=== PATIENT | male | born 1980 ===

== ENCOUNTER 2023-03-09 00:45 | Emergency (ER) | payer SELFPAY ==
[2023-03-09 01:19] VITALS: BP 145/86; PULSE 94; RESP 22; TEMP 38.2; O2SAT 97; BMI 32.3
--- NOTE | 2023-03-09 01:51 | DI.RAD.S_ITS ---
PROCEDURE: XR CHEST 1V INDICATIONS: Shortness of breath TECHNIQUE: One view of the chest was acquired. COMPARISON: CR, CHEST 2 VIEW, 03/13/2012, 20:43. FINDINGS: Surgical changes and devices: None. Lungs and pleura: Right suprahilar opacity may be infiltrate, scar or atelectasis. No pleural effusions or pneumothorax. Mediastinum: Mediastinal contours appear normal. Heart size is normal. Bones and chest wall: No suspicious bony lesions. Overlying soft tissues appear unremarkable. IMPRESSION: Right suprahilar infiltrate, scar or atelectasis. No significant discrepancy with the hourly shift radiology preliminary report. Dictated by: Quirino Flowers M.D. on 03/09/2023 at 8:31 Approved by: Quirino Flowers M.D. on 03/09/2023 at 8:33
[2023-03-09 02:08] LABS: Lactate (Lactic Acid) 1.8 mmol/L (0.7-2.1)
[2023-03-09 02:09] LABS: Alanine Aminotransferase 80 IU/L (<50); Albumin 4.6 g/dL (3.5-5.0); Albumin Globulin Ratio 1.2 (1.0-2.8); Alkaline Phosphatase 84 U/L (38-126); BUN Creatinine Ratio 9.8 (6-22); Bilirubin Total 0.7 mg/dL (0.2-1.3); Blood Urea Nitrogen 11 mg/dL (9-20); Calcium 9.7 mg/dL (8.4-10.2); Carbon Dioxide 27 mmol/L (22-32); Chloride 98 mmol/L (98-107); Estimated Glomerular Filt Rate > 60 mL/min (>60); Glucose 113 mg/dL (70-100); HEMOLYSIS < 15 (0-50); Potassium 3.5 mmol/L (3.4-5.1); Sodium 136 mmol/L (137-145); Total Protein 8.6 g/dL (6.3-8.2)
[2023-03-09 02:41] LABS: Add Manual Diff / Slide Review NO; Basophils Absolute Auto 100 /uL (0-100); Basophils Percent Auto 0.9 % (0-2); Eosinophils Absolute Auto 100 /uL (0-450); Eosinophils Percent Auto 1.8 % (2-4); Hematocrit 46.8 % (41-53); Hemoglobin 16.2 g/dL (13.5-17.5); Lymphocytes Absolute Auto 1600 /uL (1100-4500); Lymphocytes Percent Auto 21.1 % (25-40); Mean Corpuscular HGB Conc 34.6 % (30-36); Mean Corpuscular Hemoglobin 30.8 PG (26-34); Mean Corpuscular Volume 88.9 fL (80-100); Monocytes Absolute Auto 600 /uL (0-900); Monocytes Percent Auto 8.4 % (3-14); Neutrophils Absolute Auto 5100 /uL (1500-7000); Neutrophils Percent Auto 67.8 % (50-75); Platelet Count 180 X10^3/uL (150-400); Red Blood Cell Count 5.26 X10^6/uL (4.5-5.9); Red Cell Distribution Width 13.2 % (11.6-14.8); White Blood Cell Count 7.6 X10^3/uL (4.5-11.0)
--- NOTE | 2023-03-09 02:53 | ED.GENADULT ---
HPI - General Adult General Chief complaint: Fever Stated complaint: hard to breath, sent by paramedics Time Seen by Provider: 03/09/23 02:16 Source: patient Mode of arrival: Family Vehicle History of Present Illness HPI narrative: Otherwise healthy 43-year-old gentleman presents with fever and cough. He states that his symptoms began a little over week ago with minor upper respiratory symptoms including a runny nose, mild sore throat minimal cough and over the last 3 days has gotten significantly worse with fevers, increasing dyspnea and now with productive cough. He complains of chest pain with a deep breath, no palpitations. He has been able to eat and drink. He is not complaining of orthopnea, nausea and vomiting, he has no dysuria and complains of no flank pain. Related Data Previous Rx's Medication Instructions Recorded amoxicillin 875 mg-potassium 875 mg PO Q12H #20 tabs 05/18/16 clavulanate 125 mg tablet (Augmentin) hydrocodone 5 mg-acetaminophen 325 0 PO Q4HP PRN #15 tabs 05/18/16 mg tablet ([place]) metronidazole 500 mg tablet 2,000 mg (4 x 500 mg) PO ONCE #4 01/20/22 tabs doxycycline hyclate 100 mg capsule 100 mg PO BID #14 caps 03/09/23 Allergies Allergy/AdvReac Type Severity Reaction Status Date / Time No Known Allergies Allergy Uncoded 06/16/17 12:00 Review of Systems Review of Systems Narrative: Pertinent positive and negative findings as per HPI Patient History Social History Smoking Status: Former smoker Smoking Status: Former smoker alcohol intake frequency: 0-2 drinks per day Substance Use Type: does not use Exam Initial Vital Signs Initial Vital Signs: Vital Signs Temperature 100.8 F H 03/09/23 01:19 Pulse Rate 94 H 03/09/23 01:19 Respiratory Rate 22 03/09/23 01:19 Blood Pressure 145/86 H 03/09/23 01:19 Pulse Oximetry 97 03/09/23 01:19 Oxygen Delivery Method Room Air 03/09/23 01:19 General: Appears to not feel well but he is in no acute distress. Able to give a complete and coherent history. Well-nourished well-developed HEENT: Moist mucous membranes, normal sclera with reactive pupils, mildly erythematous posterior pharynx Neck: Anterior cervical adenopathy Respiratory: Lungs with rhonchi in the right mid axillary line Cardiac: Regular rate and rhythm no murmurs no bruits Abdomen: Soft, nontender, good bowel tones, no flank pain Skin: Warm and dry, no rashes Neurologic: Grossly neurologically intact with no obvious asymmetries or abnormalities Extremities: No trauma, well perfused Psych: Cooperative, appropriate insight and affect Course Orders Ordered: ED Orders 03/09/23 01:50 Complete Blood Count AUTO DIFF Stat Comprehensive Metabolic Panel Stat Lactate (Lactic Acid) Stat 03/09/23 01:51 XR chest 1V Stat 03/09/23 02:11 Blood Culture Stat 03/09/23 02:17 Respiratory Panel (Film Array) Stat Vital Signs Vital signs: Vital Signs - 8 hr 03/09/23 01:19 Temperature 100.8 F H Pulse Rate 94 H Respiratory Rate 22 Blood Pressure 145/86 H Pulse Oximetry 97 Oxygen Delivery Method Room Air Medical Decision Making Lab Data 03/09/23 01:50 03/09/23 01:50 Labs: Lab Results 03/09/23 Range/Units 01:50 WBC 7.6 (4.5-11.0) X10^3/uL RBC 5.26 (4.5-5.9) X10^6/uL Hgb 16.2 (13.5-17.5) g/dL Hct 46.8 (41-53) % MCV 88.9 (80-100) fL MCH 30.8 (26-34) PG MCHC 34.6 (30-36) % RDW 13.2 (11.6-14.8) % Plt Count 180 (150-400) X10^3/uL Neut % (Auto) 67.8 (50-75) % Lymph % (Auto) 21.1 L (25-40) % Villalba % (Auto) 8.4 (3-14) % Eos % (Auto) 1.8 L (2-4) % Baso % (Auto) 0.9 (0-2) % Neut # (Auto) 5100 (6255-7833) /uL Lymph # (Auto) 1600 (0636-1565) /uL Villalba # (Auto) 600 (0-900) /uL Eos # (Auto) 100 (0-450) /uL Baso # (Auto) 100 (0-100) /uL Sodium 136 L (137-145) mmol/L Potassium 3.5 (3.4-5.1) mmol/L Chloride 98 (98-107) mmol/L Carbon Dioxide 27 (22-32) mmol/L BUN 11 (9-20) mg/dL Creatinine 1.12 (0.66-1.25) mg/dL Estimated GFR > 60 (>60) mL/min BUN/Creatinine Ratio 9.8 (6-22) Glucose 113 H (70-100) mg/dL Lactate 1.8 (0.7-2.1) mmol/L Calcium 9.7 (8.4-10.2) mg/dL Total Bilirubin 0.7 (0.2-1.3) mg/dL ALT 80 H (<50) IU/L Alkaline Phosphatase 84 (38-126) U/L Total Protein 8.6 H (6.3-8.2) g/dL Albumin 4.6 (3.5-5.0) g/dL Globulin 4.0 (1.7-4.1) g/dL Albumin/Globulin Ratio 1.2 (1.0-2.8) MDM Narrative Medical decision making narrative: CC: Cough and fever Data collected from: patient Differential considered: Viral syndrome, bacterial pneumonia, pneumothorax, acute coronary syndrome Exam documented above, pertinent findings include: Patient has a productive cough and rhonchi in the right mid axillary line. He is not having any wheezing. Remainder of exam is benign Lab Test results independently reviewed as above. Pertinent findings: CBC is unremarkable with no significant leukocytosis Chemistries are reassuring Respiratory panel shows influenza B Imaging studies independently reviewed: Chest x-ray shows right lower lobe infiltrate developing Treatments: Toradol, Tessalon and doxycycline Discussion: 43-year-old gentleman with what started out as a viral syndrome with obvious worsening over the last few days now productive cough with clinical signs and symptoms of a developing pneumonia and a chest x-ray suggesting a developing right infiltrate. Serology demonstrates that he had influenza B and also seems to be developing a bacterial pneumonia as the influenza B symptoms are resolving. He is given a prescription for doxycycline, Tessalon Perles instructed to use ibuprofen and Tylenol for myalgias and fevers. At this time he is not meeting any criteria for sepsis, his oxygen saturations are appropriate he is alert and safe for discharge home. Anticipated course of recovery is reviewed clearly with him questions are answered and he is discharge. Discharge Plan Departure Patient Disposition: Home Clinical Impression: Influenza B Pneumonia Qualifiers: Pneumonia type: due to unspecified organism Laterality: right Lung location: lower lobe of lung Qualified Code(s): J18.9 - Pneumonia, unspecified organism Instructions: DI for Pneumonia -- Adult Activity Restrictions/Additional Instructions: Thank you for coming in today It does sound like you started out with a viral syndrome/cold. You do have influenza B. As your symptoms worsened your cough became more productive and your fever returned. I believe you are developing a bacterial pneumonia. When I listen to the bottom part of your right lung, I can hear a pneumonia developing. At this point your oxygen levels are appropriate, your labs are reassuring and you do not need to be hospitalized. I am going to give you a prescription for doxycycline, an antibiotic, to take morning and night for the next 7 days. I am also going to give you a prescription for Tessalon Perles to help with cough. Using 400 mg of ibuprofen (2 [id number] pills) and 1 Tylenol every 6 hours can be very helpful in controlling pain. 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 Prescriptions: New doxycycline hyclate 100 mg capsule 100 mg PO BID Qty: 14 0RF No Action hydrocodone-acetaminophen [[place]] 5 MG/325 MG tablet 0 PO Q4HP PRNQty: 15 0RF amoxicillin-pot clavulanate [Augmentin] 875 MG/125 MG tablet 875 mg PO Q12H Qty: 20 0RF metronidazole 500 mg tablet 2,000 mg PO ONCE Qty: 4 0RF Rx Instructions: Take 4 tabs po at once. Take with food and water. Referrals: Homer Gonsalves MD [Primary Care Provider] - Stand Alone Forms: Patient Portal/API
[2023-03-09 03:07] LABS: Adenovirus Not Detected (Not Detect); B. parapertussis Not Detected (Not Detecte); Bordetella pertussis Not Detected (Not Detect); Chlamydophila pneumoniae Not Detected (Not Detect); Coronavirus 229E Not Detected (Not Detect); Coronavirus HKU1 Not Detected (Not Detect); Coronavirus NL 63 Not Detected (Not Detect); Coronavirus OC43 Not Detected (Not Detect); Human Metapneumovirus Not Detected (Not Detect); Human Rhinovirus/Enterovirus Not Detected (Not Detect); Influenza A Not Detected (Not Detect); Influenza B Detected (Not Detect); Mycoplasma pneumoniae Not Detected (Not Detect); Parainfluenza Virus 1 Not Detected (Not Detect); Parainfluenza Virus 2 Not Detected (Not Detect); Parainfluenza Virus 3 Not Detected (Not Detect); Parainfluenza Virus 4 Not Detected (Not Detect); Respiratory Syncytial Virus Not Detected (Not Detect); SARS- CoV-2 Not Detected (Not Detecte)
[2023-03-09 03:24] VITALS: TEMP 37.8
[2023-03-09] MEDS: BENZONATATE 100 MG CAPSULE PO (03:24)
[2023-03-09] MEDS: KETOROLAC 30 MG/ML VIAL 15 MG IV (03:24)
[2023-03-09] MEDS: DOXYCYCLINE HYCLATE 100 MG TABLET PO (03:24)
[2023-03-09 03:29] VITALS: BP 132/77; PULSE 90; RESP 20; O2SAT 97
[2023-03-12 14:47] LABS: Aspartate Aminotransferase 63 IU/L (17-59)
== END 2023-03-09 03:35 | disposition home or self-care (01) ==
PROVIDERS: Emergency Provider Emergency Medicine; PCP Family Medicine
DX: J10.1 Influenza due to other identified influenza virus with other respiratory manifestations (principal); J18.9 Pneumonia, unspecified organism; Z87.891 Personal history of nicotine dependence
CPT/HCPCS: 36415; 71045; 80053; 83605; 85025; 87040; 87633; 96374; 99284; J1885